=== PATIENT | female | born 1990 | race American Indian/Alaskan Native ===

== ENCOUNTER 2018-03-09 11:53 | Emergency (ER) | payer SELFPAY ==
[2018-03-09 12:13] VITALS: BP 108/62
[2018-03-09 13:46] LABS: HCG Qualitative,Urine Negative (Negative)
[2018-03-09 13:48] LABS: Bilirubin,Urine NEG (Negative); Blood,Urine LG (Negative); Color,Urine Yellow (Yellow); Mucus,Urine FEW /HPF; Urobilinogen,Urine < 2.0 mg/dL (<2.0)
[2018-03-09 13:53] LABS: WBC,Urine > 182.0 /HPF (0.0-6.0)
[2018-03-09] MEDS ORDERED: XYLOCAINE 1% MPF 5 mL INFILTRATI ONE (14:30)
[2018-03-09] MEDS ORDERED: ZITHROMAX PO ONE (14:30)
[2018-03-09] MEDS ORDERED: ROCEPHIN IM ONE (14:30)
--- NOTE | 2018-03-09 15:09 | Emergency Department Report ---
HPI - General Chief Complaint: Urogenital-Female Time Seen by Provider: 03/09/18 14:20 - HPI HPI: 27-year-old female presents to ED complaining of foul urine odor and right flank pain 2 days. Patient states that she started to smell a really bad odor whenever she urinates. Patient states today she started experiencing some right flank pain throbbing in nature 6 out of 10 intensity. She denies fevers/chills/nausea /vomiting /vaginal discharge/vaginal bleeding she admits frequency ED Past Medical Hx - Past Medical History Previous Medical History?: No - Surgical History Past Surgical History?: No - Social History Smoking Status: Current Every Day Smoker Substance Use Type: Alcohol - Medications Home Medications: Home Medications Medication Instructions Recorded Confirmed Last Taken Type Ciprofloxacin HCl [Cipro] 500 mg PO Q12H #10 tab 04/16/14 Unknown Rx Phenazopyridine [Pyridium] 200 mg PO Q8H #9 tablet 04/16/14 Unknown Rx Fluconazole [Diflucan] 150 mg PO DAILY #1 tablet 03/09/18 Unknown Rx Ibuprofen [Motrin] 800 mg PO Q8HR #30 tablet 03/09/18 Unknown Rx ED Review of Systems ROS: Stated complaint: FLANK PAIN Other details as noted in HPI Constitutional: denies: chills, fever Eyes: denies: eye pain, eye discharge, vision change ENT: denies: ear pain, throat pain Respiratory: denies: cough, shortness of breath, wheezing Cardiovascular: denies: chest pain, palpitations Endocrine: no symptoms reported Gastrointestinal: denies: abdominal pain, nausea, diarrhea Genitourinary: denies: urgency, dysuria, discharge Musculoskeletal: denies: back pain, joint swelling, arthralgia Skin: denies: rash, lesions Neurological: denies: headache, weakness, paresthesias Psychiatric: denies: anxiety, depression Hematological/Lymphatic: denies: easy bleeding, easy bruising Physical Exam - Physical Exam Vital Signs: Vital Signs 03/09/18 12:09 Temperature 98.2 F Pulse Rate 90 Respiratory 16 Rate Blood Pressure 108/62 O2 Sat by Pulse 99 Oximetry Physical Exam: GENERAL: Alert and oriented x3, no apparent distress, Normal Gait, atraumatic. HEAD: Head is normocephalic and a-traumatic. EYES: Extra ocular muscles are intact. Pupils are equal, round, and reactive to light and accommodation. LUNGS: Symetrical with respiration, No wheezing, no rales or crackles, CTAB. HEART: S1, S2 present, regular rate and rhythm without murmur, no rubs, no gallops. Non tender to palpation ABDOMEN: No organomegaly was noted,Positive bowel sounds, soft, and non- distended. Nontender to palpation on all Quadrants, right sided CVA tenderness. BACK: Full range of motion, no spinal tenderness, nontender to palpation. SKIN: Warm and dry, No lesions, No ulceration or induration present. ED Course Vital Signs 03/09/18 12:09 Temperature 98.2 F Pulse Rate 90 Respiratory 16 Rate Blood Pressure 108/62 O2 Sat by Pulse 99 Oximetry ED Medical Decision Making - Medical Decision Making 27-year-old female presents with acute cystitis/pyelonephritis ED course: Urinalysis, positive for WBCs, lucid but leukocyte esterase, Leatha would suggest an acute cystitis I discussed findings with the patient. Palpation, some nausea 50 mg of Rocephin, 1 g azithromycin ED Patient discharged with Diflucan and Motrin. Discussed the patient follow up with primary care physician. Patient states she understands instructions given and will follow. She is in no acute or respiratory distress. Critical care attestation.: If time is entered above; I have spent that time in minutes in the direct care of this critically ill patient, excluding procedure time. ED Disposition Clinical Impression: Leatha cystitis UTI (urinary tract infection) Qualifiers: Urinary tract infection type: acute cystitis Hematuria presence: with hematuria Qualified Code(s): N30.01 - Acute cystitis with hematuria Disposition: TO HOME OR SELFCARE Is pt being admited?: No Does the pt Need Aspirin: No Condition: Stable Instructions: Urinary Tract Infection in Women (ED), Acute Pyelonephritis (ED) , Flank Pain (ED), Vulvovaginal Candidiasis (ED) Additional Instructions: Make sure to follow up with the primary care physician as discussed. Take all your medications as you've been prescribed. If you have any worsening symptoms or develop new symptoms please return to ED immediately. Prescriptions: Fluconazole [Diflucan] 150 mg PO DAILY #1 tablet Ibuprofen [Motrin] 800 mg PO Q8HR #30 tablet Referrals: MAX SAHA MD [Primary Care Provider] - 3-5 Days MORENO CHUNG MD [Referring] - 3-5 Days SURAJ PROCTOR MD [Referring] - 3-5 Days Forms: Work/School Release Form(ED) Time of Disposition: 15:39
== END 2018-03-09 15:48 | disposition home or self-care (01) ==
LOC: ED 11:53
DX: N30.01 Acute cystitis with hematuria (principal); B37.41 Candidal cystitis and urethritis; F17.200 Nicotine dependence, unspecified, uncomplicated
CPT/HCPCS: 81001; 81025; 96372; 99283; J0696

== ENCOUNTER 2019-04-18 19:42 | Emergency (ER) | payer SELFPAY ==
[2019-04-18 19:52] VITALS: BP 118/80
--- NOTE | 2019-04-18 20:22 | Event Note ---
ED Screening Note Date of service: 04/18/19 Time: 20:20 ED Screening Note: This is a 28 y.o. F. that presents to the ER with vaginal pain for 2 days. This initial assessment/diagnostic orders/clinical plan/treatment(s) is/are subject to change based on patients health status, clinical progression and re- assessment by fellow clinical providers in the ED. Further treatment and workup at subsequent clinical providers discretion. Patient/guardian urged not to elope from the ED as their condition may be serious if not clinically assessed and managed. Initial orders include: UA and hcg
[2019-04-18] MEDS ORDERED: AZITHROMYCIN 1 GM ORAL PWDR PACKET PO ONE (21:06)
[2019-04-18] MEDS ORDERED: LIDOCAINE-MPF (1%) 10 MG/1 ML VIAL 5 ML INFILTRATI ONE (21:06)
--- NOTE | 2019-04-18 21:06 | Emergency Department Report ---
HPI - General Chief Complaint: Urogenital-Female Time Seen by Provider: 04/18/19 20:19 - HPI HPI: Room 40 The patient is a 28-year-old female presenting with a chief complaint of vaginal burning. Patient states she's had vaginal burning for 2 days. Patient states she is uncertain she's had vaginal discharge. She is currently on her cycle patient missed a dysuria but denies hematuria. Patient denies history of fever. Patient denies skin lesions. Location: [See above] Duration: [See above] Quality: [See above] Severity: [See above] Timing: [See above] Context: [See above] Modifying factors: [See above] Associated signs and symptoms: [see above] ED Past Medical Hx - Past Medical History Previous Medical History?: No - Surgical History Past Surgical History?: No - Family History Family history: no significant - Social History Smoking Status: Never Smoker Substance Use Type: Alcohol (occasional), Marijuana - Medications Home Medications: Home Medications Medication Instructions Recorded Confirmed Last Taken Type Ciprofloxacin HCl [Cipro] 500 mg PO Q12H #10 tab 04/16/14 Unknown Rx Phenazopyridine [Pyridium] 200 mg PO Q8H #9 tablet 04/16/14 Unknown Rx Fluconazole [Diflucan] 150 mg PO DAILY #1 tablet 03/09/18 Unknown Rx Ibuprofen [Motrin] 800 mg PO Q8HR #30 tablet 03/09/18 Unknown Rx Ciprofloxacin [Ciprofloxacin ORAL 500 mg PO Q12H #14 ml 04/18/19 Unknown Rx LIQ] metroNIDAZOLE [Flagyl] 500 mg PO Q12HR #14 tab 04/18/19 Unknown Rx ED Review of Systems ROS: Stated complaint: VAGINAL PAIN Other details as noted in HPI Constitutional: denies: fever Eyes: denies: eye pain ENT: denies: throat pain Respiratory: no symptoms reported Cardiovascular: denies: chest pain Endocrine: no symptoms reported Gastrointestinal: denies: abdominal pain Genitourinary: dysuria, discharge Neurological: denies: headache Physical Exam - Physical Exam Vital Signs: Vital Signs 04/18/19 19:48 Temperature 98.0 F Pulse Rate 86 Respiratory 18 Rate Blood Pressure 118/80 O2 Sat by Pulse 100 Oximetry Physical Exam: GENERAL: The patient is well-developed well-nourished female standing in room not appearing to be in acute distress. [] HEENT: Normocephalic. Atraumatic. Extraocular motions are intact. Patient has moist mucous membranes. NECK: Supple. Trachea midline CHEST/LUNGS: Clear to auscultation. There is no respiratory distress noted. HEART/CARDIOVASCULAR: Regular. There is no tachycardia. There is no gallop rub or murmur. ABDOMEN: Abdomen is soft, nontender. Patient has normal bowel sounds. There is no abdominal distention. SKIN: There is no rash. There is no edema. There is no diaphoresis. NEURO: The patient is awake, alert, and oriented. The patient is cooperative. The patient has no focal neurologic deficits. The patient has normal speech and gait. MUSCULOSKELETAL: There is no evidence of acute injury. PELVIC: ED Course Vital Signs 04/18/19 19:48 Temperature 98.0 F Pulse Rate 86 Respiratory 18 Rate Blood Pressure 118/80 O2 Sat by Pulse 100 Oximetry - Reevaluation(s) Reevaluation #1: 04/18/19 22:44 Patient states she does not wish to wait for the remainder of her urinalysis results. Patient states she wishes to go home because she has to be up in 4 hours to work. We'll give patient prescription for UTI empirically ED Medical Decision Making - Lab Data UA pending - Differential Diagnosis vaginitis, urethritis, UTI Critical care attestation.: If time is entered above; I have spent that time in minutes in the direct care of this critically ill patient, excluding procedure time. ED Disposition Clinical Impression: Trichomonas vaginalis infection, Bacterial vaginosis Disposition: DC-01 TO HOME OR SELFCARE Is pt being admited?: No Does the pt Need Aspirin: No Condition: Stable Instructions: Bacterial Vaginosis (ED) Additional Instructions: Return to the emergency department should you develop worsening symptoms, inability to tolerate food or liquids, high fever or any other concerns Prescriptions: Ciprofloxacin [Ciprofloxacin ORAL LIQ] 500 mg PO Q12H #14 ml metroNIDAZOLE [Flagyl] 500 mg PO Q12HR #14 tab Referrals: [facility] Depart [Outside] - 3-5 Days Forms: STI Treatment and Prevention Time of Disposition: 22:46
[2019-04-18 22:45] LABS: Bacteria,Urine 1+ /HPF (Negative); Bilirubin,Urine NEG (Negative); Blood,Urine LG (Negative); Color,Urine Yellow (Yellow); HCG Qualitative,Urine Negative (Negative); Mucus,Urine FEW /HPF; Protein,Urine <15 mg/dL mg/dL (Negative); Urobilinogen,Urine < 2.0 mg/dL (<2.0)
== END 2019-04-18 22:51 | disposition home or self-care (01) ==
LOC: ED 19:42
DX: A59.01 Trichomonal vulvovaginitis (principal); F12.10 Cannabis abuse, uncomplicated; Z79.899 Other long term (current) drug therapy
CPT/HCPCS: 81001; 81025; 87086; 87210; 87591; 96372; 99284; J0696